=== PATIENT | male | born 1965 | race Caucasian/White ===

== ENCOUNTER 2024-10-22 15:12 | Emergency (ER) | payer MEDICAID, SELFPAY ==
[2024-10-22 15:13] VITALS: BMI 24.4
[2024-10-22 15:31] VITALS: BP 107/53; PULSE 92; RESP 17; TEMP 36.6; O2SAT 96
--- NOTE | 2024-10-22 15:57 | XR_ITS ---
Examination: CT abdomen and pelvis without contrast. Coronal 3-D reconstructions. Sagittal 2-D reconstructions. Date and time of exam:October 22, 2024 1616 hours INDICATIONS: Right lower abdominal pain beginning 2 weeks ago CTDI: vol (mGy): 6.40 DLP: (mGycm): 323 Technique: Axial images of the abdomen have been obtained, 3 mm slice thickness Intravenous contrast material has not been administered. Low dose protocols were performed. One or more of the following dose reduction techniques were used; automated exposure control, adjustment of the mA and/or KV according to patient size, use of iterative reconstruction technique. Findings: No focal liver or splenic lesions No gallstones No pancreatic or adrenal mass No renal or ureteral calculi, no hydronephrosis Aorta normal size Normal appendix No pericecal inflammatory change No significant prostatic megaly Urinary bladder wall is thickened up to 7 mm no bladder calculi Advanced degenerative disc disease L5-S1 IMPRESSION: No renal or ureteral calculi, no hydronephrosis Normal appendix Significant thickening of the urinary bladder wall, differential would include cystitis
--- NOTE | 2024-10-22 16:01 | EDNOTE_ITS ---
ED General RME/HPI General Chief complaint: General Adult/Misc Complain Stated complaint: POSSIBLE HERNIA Time Seen by Provider: 10/22/24 15:15 Arrival date/time: 10/22/24 15:12 This is a 59 year old male with complaints of right inguinal bulge that started recently per patient. Patient states he has frecently been lifting alot of heavy things recently and noticed a bulge around his right inguinal area. Pt denies fever, nausea, vomiting, diarrhea. Pt states he is having regular bowel movements and is not having issues going to restroom Related Data Previous Rx's ?Medication ?Instructions ?Recorded Hydrocodone/Acetaminophen * (NORCO 1 tab PO Q4-6H PRN PAIN #20 tabs 07/09/14 5/325 *) Allergies Allergy/AdvReac Type Severity Reaction Status Date / Time No Known Allergies Allergy Unverified 10/22/24 17:51 Review of Systems Review of Systems Systems Reviewed: All systems reviewed, normal except as documented Past Medical History Past Medical History Comments PMH COMMENT: none ED Exam Narrative Physical exam: VITAL SIGNS: Reviewed. GENERAL APPEARANCE: Alert and interactive, follows commands, no acute distress, HEAD AND FACE: Non-traumatic. ENT: PERRL, conjuctiva pink and clear, eyelid no trauma, Mucous membrane moist. NECK: Supple, nontender, no nuchal rigidity. CHEST: No tenderness, no crepitus, no paradoxical movement, no retractions. LUNGS: Clear, well ventilated, symmetric, no rales, no wheezing, no rhonchi, no stridor, good breath sounds bilaterally. HEART: Regular rate, regular rhythm, no murmur, no gallops. ABDOMEN: Soft, nondistended, no guarding, nontender, bulge to right groin, not appear to be reducible NEUROLOGICAL: Gross motor function intact sensory function intact, Appropriate for age. MUSCULOSKELETAL: low back nontender, full range of motion. EXTREMITIES: No redness no swelling no skin breakdown on bilateral foot and leg. Distal neurovascular status intact bilateral foot SKIN: Color pink, dry, no rash, no lacerations, no abrasions, no contusions. Course Quality Measures none Orders Category Date Time Status CT abdomen pelvis wo con Stat Exams 10/22/24 15:57 Completed Urinalysis, C/S if Indicated Stat Lab 10/22/24 18:00 Completed cefTRIAXone [Rocephin] 1,000 mg Med 10/22/24 17:50 Discontinued Lidocaine 1% 20 ml [Xylocaine 1% 20 ML] 2.1 ml IM X1 Vital Signs Vital signs: Vital Signs Temperature 97.9 F 10/22/24 15:31 Pulse Rate 92 10/22/24 15:31 Respiratory Rate 17 10/22/24 15:31 Blood Pressure 107/53 L 10/22/24 15:31 Pulse Oximetry (%) 96 10/22/24 15:31 Oxygen Delivery Method Room Air 10/22/24 15:31 Discharge Plan Plan Patient Disposition: HOME (Self Care) Patient condition on transfer: Stable Prescriptions/Referrals Prescriptions/Med Rec: No Action Hydrocodone/Acetaminophen * (NORCO 5/325 *) 1 TAB tablet 1 tab PO Q4-6H PRN (Reason: PAIN) Qty: 20 0RF Rx Instructions: FOR PAIN Referrals: No Primary/Family,Physician [Primary Care Provider] - In 1 week Problem List Clinical Impression: Inguinal bulge Patient/Caregiver Discharge Instructions Discharge Activity: activity as tolerated Education Materials: Anatomy of the Abdomen and Groin, ED Urinary Tract Infections in Men Additional Instructions: Follow up with primary provider in 1-2 days. Come back to ED if symptoms change or worsen Print Language: Czech Stand Alone Forms: [employer] Award Info., Patient Portal Info Letter PA/ARIANNE Supervising Physician PA/ARIANNE Supervising Physician: anthony LARRY hospital course: Spoke to patient at length. Went over CT results. Patient not complaining of any pain at this time. Explained the importance of follow-up with his primary doctor. His CT scan showed some possible thickening to the bladder which could indicate infection. Patient will get a shot of Rocephin here and follow-up with urine cultures with primary provider. Patient comfortable plan of care patient son at bedside. ct abdomen and pelvis: Findings: No focal liver or splenic lesions No gallstones No pancreatic or adrenal mass No renal or ureteral calculi, no hydronephrosis Aorta normal size Normal appendix No pericecal inflammatory change No significant prostatic megaly Urinary bladder wall is thickened up to 7 mm no bladder calculi Advanced degenerative disc disease L5-S1 IMPRESSION: No renal or ureteral calculi, no hydronephrosis Normal appendix Significant thickening of the urinary bladder wall, differential would include cystitis Clinical Information Provided by patient Medical Records Reviewed None Meds/Rx Considered, not Ordered None Labs/Rad/Tests considered, not Ordered None Chronic Illness/Social Conditions which may negatively complicate care or outcome(s)-explain: None or not applicable EKG EKG not done Lab Interpretation Labs: none Imaging Imaging interpretation: see narrative above Medication Administration(s) none Medication Administration History Discontinued Medications Ceftriaxone Sodium 1,000 mg/ (Lidocaine HCl 2.1 ml) 0 mg IM X1 ONE Stop: 10/22/24 17:51 Last Admin: 10/22/24 17:55 Dose: 1,000 mg Documented By: YUNIEL Comments: 2.1 ml lido Diagnosis Differential diagnosis: inguinal hernia, abscess, contusison Most likely dx, and/or detailed dx discussion: inguinal bulge Dispositon Disposition: Discharge Home
[2024-10-22 17:44] VITALS: BP 121/71; PULSE 90; RESP 18; TEMP 36.7; O2SAT 97
[2024-10-22] MEDS: cefTRIAXone 1,000 MG, LIDOCAINE 1% 20 ML 2.1 ML IM (17:55)
[2024-10-22 18:06] LABS: Collection Type, Urine Voided
[2024-10-22 18:17] LABS: Bilirubin,Urine Negative (Negative); Blood,Urine Negative (Negative); Clarity,Urine Clear (Clear/Hazy); Color,Urine Yellow (Lt Yel-Yel); Culture Indicated,Urine Not Indicated; Glucose, Urine Negative (Negative); Ketones,Urine Negative (Negative); Leukocyte Esterase,Urine Negative (Negative); Nitrite,Urine Negative (Negative); Protein,Urine Negative (Neg - Trace); RBC,Urine 1 /hpf (0-3); Specific Gravity,Urine 1.021 (1.001-1.035); Squamous Epithelial Cell,Urine < 1 /hpf (0-5); Urobilinogen,Urine Negative mg/dL (0.0-1.0); WBC,Urine 6 /hpf (0-5)
== END 2024-10-22 18:07 | disposition home or self-care (01) ==
PROVIDERS: Nurse Practitioner Family; Emergency Provider Family Medicine
DX: R19.03 Right lower quadrant abdominal swelling, mass and lump (principal); N32.89 Other specified disorders of bladder
CPT/HCPCS: 74176; 81001; 87086; 96372; 99284; J0696; J3490

== ENCOUNTER → 2024-12-01 | Outpatient (CLI) | payer MEDICAID, SELFPAY ==
--- NOTE | 2024-12-01 13:00 | XR_ITS ---
Examination: Abdomen sonogram, Limited Date and time of exam: December 01, 2024, 1414 hours INDICATIONS: Palpable lump in the right groin noticed beginning 2 months ago TECHNIQUE: Grayscale sonographic images upright abdomen FINDINGS: Right groin hernia defect 4.4 x 3.7 x 1.2 cm IMPRESSION: Right groin hernia defect 4.4 x 3.7 x 1.2 cm
== END | disposition home or self-care (01) ==
DX: K46.9 Unspecified abdominal hernia without obstruction or gangrene (principal)
CPT/HCPCS: 76705

== ENCOUNTER 2025-02-09 08:20 | Day surgery (SDC) | payer MEDICAID, SELFPAY ==
[2025-02-08 09:10] VITALS: BMI 24.5
[2025-02-08 10:20] LABS: Basophils # (Auto) 0.1 Thou/mm3 (0.0-0.2); Basophils % (Auto) 1 % (0-2.5); Eosinophils # (Auto) 0.1 Thou/mm3 (0.0-0.5); Eosinophils % (Auto) 1 % (0-10); Hematocrit 45.5 % (41.0-53.0); Hemoglobin 15.9 g/dL (13.5-16.0); Immature Granulocytes Auto 0.01 Thou/mm3 (0.00-0.00); Lymphocytes # (Auto) 2.0 Thou/mm3 (1.0-4.8); Lymphocytes % (Auto) 24 % (10-50); Mean Corpuscular HGB Conc 34.9 g/dl (31.0-37.0); Mean Corpuscular Hemoglobin 31.1 pg (25.0-35.0); Mean Corpuscular Volume 89 fL (80-100); Monocytes # (Auto) 0.9 Thou/mm3 (0.0-0.8); Monocytes % (Auto) 11 % (0-12); Neutrophils # (Auto) 5.3 Thou/mm3 (1.8-7.7); Neutrophils % (Auto) 63 % (37-80); Nucleated Red Blood Cell # 0.00 Thou/mm3 (0.00-0.00); Nucleated Red Blood Cell % 0 /100 WBC (0); Platelet Count 243 Thou/mm3 (140-440); RDW Standard Deviation 41.5 fL (35.1-43.9); Red Blood Count 5.12 Miln/mm3 (4.50-5.90); White Blood Count 8.4 Thou/mm3 (3.8-10.6)
[2025-02-08 10:30] LABS: Alanine Aminotransferase 30 U/L (10-49); Albumin, Serum 4.5 gm/dL (3.5-5.0); Albumin/Globulin Ratio 1.8 (1.2-2.2); Alkaline Phosphatase 110 U/L (46-116); Anion Gap 9 (7-16); Aspartate Amino Transferase 28 U/L (0-34); BUN/Creatinine Ratio 8 Ratio (12-20); Bilirubin,Total 0.8 mg/dL (0.3-1.2); Blood Urea Nitrogen 10 mg/dL (9-23); Calcium 9.8 mg/dL (8.3-10.6); Calcium (Corrected) 9.8 mg/dL (8.5-10.1); Carbon Dioxide 29.1 mMol/L (20.0-31.0); Chloride 104 mMol/L (98-107); Creatinine (Component) 1.2 mg/dL (0.6-1.3); Estimated Creatinine Clearance 69.3 mL/min (>60); Globulin 2.5 gm/dL (2.3-3.5); Glucose 86 mg/dL (74-106); Osmolality,Calculated 281 (275-295); Potassium 4.1 mMol/L (3.4-5.1); Sodium 142 mMol/L (136-145); Total Protein 7.0 gm/dL (5.7-8.2); eGFR > 60 See Note
[2025-02-08 10:42] LABS: INR 1.0 (0.9-1.3); Partial Thromboplastin Time 27.9 Seconds (22.0-36.0); Prothrombin Time 10.8 Seconds (9.0-12.2)
[2025-02-09] VITALS (7 sets, daily range): BP systolic 116–130; BP diastolic 70–84; PULSE 64–81; RESP 12–18; TEMP 36.1–36.7; O2SAT 96–100; BMI 24.3
--- NOTE | 2025-02-09 08:50 | SUR.PREOP ---
Patient expressed gratitude for prayer before their procedure.
--- NOTE | 2025-02-09 11:33 | SUR.PHASEI ---
1133 Patient arrived to recovery resting comfortably in [facility], on oxygen 4L via oxy mask with an oral airway in place, breathing unlabored, vital signs stable, dressing intact to right groin; sutures, adaptic, gauzem, medipore tape, no bleeding noted, report received from Dr. Atwood and Echo CARDOZA
--- NOTE | 2025-02-09 12:16 | ESOP_ITS ---
Date of Procedure 02/09/25 Pre Op Diagnosis Symptomatic right inguinal hernia Post Op Diagnosis Same, indirect inguinal hernia Procedure Repair of the symptomatic right indirect inguinal hernia with 2 x 4 Marlex mesh on the floor Findings Patient is found to have indirect inguinal hernia with a sac and some preperitoneal fat. He did not require reconstruction of the inguinal floor. Procedure Description After the patient was given LMA anesthesia is lower abdomen was prepped with chloreprep solution and draped. Standard right groin incision was made in the external oblique was reached. Incision was made over the external oblique and the patient was found to have a large sac next to the cord structures. The cord structures were encircled around a Bhavin drain and the sac was easily . It was opened and was found to contain no organs.. Patient had a large opening in this hernial sac in the mouth of the internal ring was however narrow. The sac was so thin and it was difficult to from the remaining cord structures which was accomplished with gentle and careful dissection. The sac was isolated and I suture ligated this with 2-0 chromic and then divided. Another 2-0 chromic suture ligation was used to prevent any slippage of the previous suture. Then I palpated the floor of the inguinal canal which appeared to be strong. The patient also had some preperitoneal fat coming through the internal ring which was suture-ligated at the internal ring. There was a slight opening at the internal ring and therefore I placed a 2 x 4 Marlex mesh and attached it medially to the pubic tubercle and laterally it was tucked underneath the external oblique after crossing the cord structures. I placed one stitch of Prolene lateral to the cord structures. Then external oblique was closed with running 2-0 Vicryl and subcutaneous tissues was approximated with 30 plain I injected half percent Marcaine with epinephrine for analgesia and the skin was closed with 4-0 Monocryl. Dressing was applied with Adaptic and 4 x 4 and the patient tolerated the procedure well and left operating room in stable condition. Anesthesia GETA Implants 2 x 4 Marlex mesh Pathology / specimen None IVF Infused 800 Estimated Blood Loss 10 Surgeon Jean Flor MD Surgical Staff Operation Date: 02/09/25 10:30 Case Staff Anesthesiologist: Sumit Atwood RN First Assistant: Aurea Mandel RNwet process miller head assistant: Purvi No
--- NOTE | 2025-02-09 12:34 | SUR.PHASEII ---
1234 Patient meets discharge criteria from recovery, awake and alert, breathing unlabored, vital signs stable, denies pain, eating ice chips; denies nausea, assisted with dressing into his clothing by this marine underwriter, discharge instructions given to patient and patients daughter, daughter signed discharge instructions. Patient given all his belongings prior to discharge, transported via wheelchair and left in a private vehicle.
== END 2025-02-09 12:34 | disposition home or self-care (01) ==
PROVIDERS: PCP Family Medicine; Referring Provider Surgery; Visit Provider Surgery
PROC: (CPT 49505; principal; 2025-02-09 10:15)
DX: K40.90 Unilateral inguinal hernia, without obstruction or gangrene, not specified as recurrent (principal)
CPT/HCPCS: 49505; 36415; 80053; 85025; 85610; 85730; A4217; A4649; C1781; J0131; J1100; J1885; J2250; J2371; J2405; J2704; J3010; J3490